=== PATIENT | male | born 1965 | race Caucasian/White ===

== ENCOUNTER 2024-07-31 13:06 | Emergency (ER) | payer OTHER, MEDICAID, SELFPAY ==
[2024-07-31 13:14] VITALS: BP 152/73; PULSE 72; RESP 18; TEMP 36.6; O2SAT 97; BMI 42.8
--- NOTE | 2024-07-31 13:26 | US_ITS ---
WS: [id number] RIGHT UPPER QUADRANT ULTRASOUND HISTORY: ruq pain COMPARISON: None available. Liver: Nondiagnostic evaluation of the liver. The entire liver is not visualized. Portal Vein: Not visualized. Gallbladder: Normally distended gallbladder with stones. Gallbladder wall is not thickened. CBD: Not identified. Pancreas: Obscured. Right kidney: 10.6 cm in length. Poorly visualized. No obstruction. Aorta and IVC: Not visualized. No ascites. US/US gall bladder [id number] IMPRESSION: 1. Technically very limited evaluation of the RIGHT upper quadrant. Nondiagnos tic exam for the most part. 2. Cholelithiasis. 3. Common bile duct is not visualized.
--- NOTE | 2024-07-31 13:27 | W.ED.ABDPA2 ---
HPI - Abdominal Pain General: Chief Complaint: Abdominal Pain Stated Complaint: Abdominal pain, Gallbladder issues Time Seen by Provider: 07/31/24 13:15 Source: patient Mode of arrival: ambulatory Limitations: no limitations History of Present Illness: 59-year-old male states that he has been having nausea vomiting also abdominal pain for the last week. He states that he is seen at [facility] on the was admitted for elevated liver enzymes and cholelithiasis states that when he is there he decided to check out AMA. States he still had some nausea states his pain is much improved he denies any abdominal pain here he has been afebrile. Denies any diarrhea. Associated Symptoms: Reports nausea and vomiting; Denies chills, diarrhea and fever(s) Related Data Home Medications Medication Instructions Recorded Confirmed Phen/Topir/B12 Sr 1 cap PO DAILY 07/31/24 07/31/24 amlodipine 10 mg tablet 10 mg PO DAILY 07/31/24 07/31/24 apixaban 5 mg tablet (Eliquis) 5 mg PO BID 07/31/24 07/31/24 aspirin 81 mg tablet,delayed 81 mg PO DAILY 07/31/24 07/31/24 release buspirone 30 mg tablet 20 mg PO BID 07/31/24 07/31/24 clonazepam 1 mg tablet 1 mg PO BEDTIME 07/31/24 07/31/24 gabapentin 800 mg tablet 800 mg PO TID 07/31/24 07/31/24 ibuprofen 800 mg tablet 800 mg PO BID 07/31/24 07/31/24 losartan 50 mg tablet 50 mg PO BID 07/31/24 07/31/24 metoprolol tartrate 25 mg tablet 25 mg PO BID 07/31/24 07/31/24 multivitamin 1 tab PO DAILY 07/31/24 07/31/24 sodium chloride-potassium chloride 1 tab PO 5XD 07/31/24 07/31/24 287 mg-180 mg-15 mg tablet (Thermotabs) venlafaxine 75 mg capsule,extended 75 mg PO DAILY 07/31/24 07/31/24 release 24 hr Previous Rx's Medication Instructions Recorded hydrocodone 5 mg-acetaminophen 325 1 tab PO Q6H PRN pain #14 tabs 07/31/24 mg tablet ondansetron 4 mg disintegrating 4 mg PO Q6H PRN nausea and 07/31/24 tablet vomiting #14 tabs Allergies Allergy/AdvReac Type Severity Reaction Status Date / Time nalbuphine [From Nubain] Allergy Unknown Verified 07/31/24 13:18 Review of Systems Const: Reports: fatigue; Denies: fever(s), chills, body aches or change in appetite ENMT: Denies: throat pain or dental pain Card: Denies: chest pain Resp: Denies: dyspnea GI: Reports: abdominal pain, nausea and vomiting; Denies: diarrhea Musc: Denies: neck pain or back pain Skin/Breast: Denies: rash Neuro: Denies: headache(s) Physical Exam Const: COMMON NORMALS: no acute distress, patient oriented x3 and healthy appearing HENMT: COMMON NORMALS: normocephalic and atraumatic HEAD & SCALP: normocephalic and atraumatic Neck/C-Spine: COMMON NORMALS: full ROM and supple Chest: COMMONS NORMALS: normal inspection of the chest Resp: COMMON NORMALS: normal respiratory effort, No retractions, No use of accessory muscles and clear to auscultation bilaterally AUSCULTATION: clear to auscultation bilaterally Cardio: COMMON NORMALS: regular rate, regular rhythm and No murmurs present (Cardio) RATE: regular rate RHYTHM: regular rhythm GI: COMMON NORMALS: Normal to inspection, nondistended, normoactive bowel sounds present, Soft to palpation, non-tender and no masses PALPATION: Yes Soft to palpation Extremity: COMMON NORMALS: normal to inspection and full ROM Neuro: COMMON NORMALS: patient oriented x3, moves all extremities and no focal motor deficits Psych: COMMON NORMALS: mental status grossly normal, Normal thought process present and cooperative THOUGHT PROCESS: Normal thought process present Skin: COMMON NORMALS: no rashes or lesions noted and no wounds GENERAL SKIN EXAM: no rashes or lesions noted Course Vital Signs: Vital signs: Vital Signs Temperature 97.9 F 07/31/24 13:14 Pulse Rate 69 07/31/24 14:54 Respiratory Rate 16 07/31/24 14:54 Blood Pressure 136/83 07/31/24 14:54 Pulse Oximetry 95 07/31/24 14:54 Oxygen Delivery Me thod Room Air 07/31/24 14:42 MDM - Abdominal Pain Medical Decision Making Patient presents here with abdominal pain is improved his abdominal exam here is benign he has no right upper quadrant tenderness I did review CT is done 2 days ago it [place] it showed multiple gallstones no signs of cholecystitis common bile duct was normal ultrasound here showed gallstones as well is liver enzymes bilirubin are unchanged they are only mildly elevated he has no signs of choledocholithiasis no signs of cholecystitis we will start him on pain meds nausea medicine will have him follow-up with surgery he is return if he has fever or increasing pain Medical Records I reviewed the patient's medical records. Lab Data I reviewed the patient's lab results. 07/31/24 13:50 07/31/24 13:50 Labs/Radiology: Radiology Impressions Gallbladder Ultrasound 07/31/24 13:26 IMPRESSION: 1. Technically very limited evaluation of the RIGHT upper quadrant. Nondiagnostic exam for the most part. 2. Cholelithiasis. 3. Common bile duct is not visualized. Laboratory Results WBC 5.34 10^3/uL (3.29-11.43) 07/31/24 13:50 RBC 5.05 10^6/uL (3.85-5.65) 07/31/24 13:50 Hgb 16.40 g/dL (11.27-16.99) 07/31/24 13:50 Hct 44.6 % (37-53) 07/31/24 13:50 MCV 88.3 fl (82-101) 07/31/24 13:50 MCH 32.5 pg (27-33) 07/31/24 13:50 MCHC 36.8 g/dL (30-55) 07/31/24 13:50 RDW 12.8 % (12.1-15.1) 07/31/24 13:50 Plt Count 201 10^3/cmm (157-399) 07/31/24 13:50 MPV 10.1 fL (7.4-10.4) 07/31/24 13:50 Neut % (Auto) 35.6 % 07/31/24 13:50 Lymph % (Auto) 49.1 % 07/31/24 13:50 [place] % (Auto) 11.4 % 07/31/24 13:50 Eos % (Auto) 3.0 % 07/31/24 13:50 Baso % (Auto) 0.7 % 07/31/24 13:50 Neut # (Auto) 1.90 10^3/uL (1.8-7.7) 07/31/24 13:50 Lymph # (Auto) 2.6 10^3/uL (0.8-4.8) 07/31/24 13:50 [place] # (Auto) 0.6 10^3/uL (0.2-0.9) 07/31/24 13:50 Eos # (Auto) 0.2 10^3/uL (0.0-0.8) 07/31/24 13:50 Baso # (Auto) 0.0 10^3/uL (0.0-0.1) 07/31/24 13:50 Nucleated RBC % (auto) 0 % 07/31/24 13:50 Nucleated RBCs # 0.0 /100WBC 07/31/24 13:50 Sodium 132 mmol/L (136-145) L 07/31/24 13:50 Potassium 4.3 mmol/L (3.5-5.1) 07/31/24 13:50 Chloride 98 mmol/L (98-107) 07/31/24 13:50 Carbon Dioxide 20 mmol/L (22-29) L 07/31/24 13:50 Anion Gap 18.3 (5-19) 07/31/24 13:50 BUN 7 mg/dL (6-20) 07/31/24 13:50 Creatinine 1.0 mg/dL (0.7-1.2) 07/31/24 13:50 GFR Calculation 77.0 mL/min (90-130) L 07/31/24 13:50 Glucose 119 mg/dL (65-115) H 07/31/24 13:50 Calculated Osmolality 273 mOsm/kg (285-295) L 07/31/24 13:50 Calcium 8.8 mg/dL (8.5-10.5) 07/31/24 13:50 Total Bilirubin 1.5 mg/dL (0.15-1.2) H 07/31/24 13:50 AST 78 U/L (0-40) H 07/31/24 13:50 ALT 102 U/L (0-41) H 07/31/24 13:50 Alkaline Phosphatase 129 U/L (40-130) 07/31/24 13:50 Total Protein 6.9 g/dL (6.6-8.7) 07/31/24 13:50 Albumin 4.1 g/dL (3.5-5.2) 07/31/24 13:50 Globulin 2.8 g/dL (1.3-4.6) 07/31/24 13:50 Lipase 34 U/L (13-60) 07/31/24 13:50 All radiology interpretation(s) finalized by discharge Discharge Plan Discharge Patient Disposition: Home Clinical Impression: Abdominal pain, Cholelithiases Condition: Stable Prescriptions: New hydrocodone-acetaminophen 5-325 mg tablet 1 tab PO Q6H PRN (Reason: pain) Qty: 14 0RF ondansetron 4 mg tablet,disintegrating 4 mg PO Q6H PRN (Reason: nausea and vomiting) Qty: 14 0RF No Action multivitamin Tablet 1 tab PO DAILY losartan 50 mg tablet 50 mg PO BID venlafaxine 75 mg capsule,extended release 24hr 75 mg PO DAILY ibuprofen 800 mg tablet 800 mg PO BID clonazepam 1 mg tablet 1 mg PO BEDTIME Aspir-81 81 mg Tablet,Delayed Release (Dr/Ec) 81 mg PO DAILY gabapentin 800 mg tablet 800 mg PO TID amlodipine 10 mg tablet 10 mg PO DAILY buspirone 30 mg tablet 20 mg PO BID metoprolol tartrate 25 mg tablet 25 mg PO BID Thermotabs 287-180-15 mg Tablet 1 tab PO 5XD Eliquis 5 mg tablet 5 mg PO BID Phen/Topir/B12 Sr 1 cap PO DAILY Discharge Orders: Discharge ED (Routine); Ordered 07/31/24 Ordered By: Ramila Arriola Referrals: Vega Zavala MD [Physician] - 4-7 days Artemio Lewis NP [Primary Care Provider] - Discharge Diet: Advance as tolerated Discharge Activity: Resume usual activity Patient Instructions: Biliary Colic (ED), Gallstones (ED), Abdominal Pain (ED) Coding Level of Care Code ED Inside Sales Assistant for Ellis Basilio
[2024-07-31] MEDS: ondansetron 2 mg/ML SDV 2 mL 4 MG IVP (13:50)
[2024-07-31 13:55] LABS: Basophils % 0.7 %; Eosinophils # 0.2 10^3/uL (0.0-0.8); Hematocrit 44.6 % (37-53); Lymphocytes # 2.6 10^3/uL (0.8-4.8); Lymphocytes % 49.1 %; Mean Corpuscular HGB Conc 36.8 g/dL (30-55); Mean Corpuscular Hemoglobin 32.5 pg (27-33); Mean Corpuscular Volume 88.3 fl (82-101); Mean Platelet Volume 10.1 fL (7.4-10.4); Monocytes # 0.6 10^3/uL (0.2-0.9); Monocytes % 11.4 %; Neutrophils % 35.6 %; Nucleated Red Blood Cells % 0 %; Platelet Count 201 10^3/cmm (157-399); Red Blood Count 5.05 10^6/uL (3.85-5.65); Red Cell Distribution Width 12.8 % (12.1-15.1); White Blood Count 5.34 10^3/uL (3.29-11.43)
[2024-07-31 13:57] VITALS: BP 145/91; PULSE 99; RESP 18; O2SAT 96
[2024-07-31 14:11] LABS: Alanine Aminotransferase 102 U/L (0-41); Albumin Level 4.1 g/dL (3.5-5.2); Alkaline Phosphatase 129 U/L (40-130); Anion Gap 18.3 (5-19); Aspartate Amino Transferase 78 U/L (0-40); Blood Urea Nitrogen 7 mg/dL (6-20); Calcium 8.8 mg/dL (8.5-10.5); Carbon Dioxide 20 mmol/L (22-29); Chloride 98 mmol/L (98-107); Globulin 2.8 g/dL (1.3-4.6); Glucose 119 mg/dL (65-115); Lipase 34 U/L (13-60); Osmolality Calculated 273 mOsm/kg (285-295); Potassium 4.3 mmol/L (3.5-5.1); Sodium 132 mmol/L (136-145); Total Bilirubin 1.5 mg/dL (0.15-1.2); Total Protein 6.9 g/dL (6.6-8.7)
[2024-07-31 14:42] VITALS: BP 114/75; PULSE 85; RESP 16; O2SAT 98
[2024-07-31 14:54] VITALS: BP 136/83; PULSE 69; RESP 16; O2SAT 95
--- NOTE | 2024-07-31 15:01 | DCPLANNER ---
messaged gen surg for er f/u
== END 2024-07-31 15:04 | disposition home or self-care (01) ==
PROVIDERS: Emergency Provider Emergency Medicine; PCP Nurse Practitioner
DX: K80.20 Calculus of gallbladder without cholecystitis without obstruction (principal); Z79.82 Long term (current) use of aspirin; Z79.01 Long term (current) use of anticoagulants
CPT/HCPCS: 76705; 80053; 83690; 85025; 96374; 99284; J2405

== ENCOUNTER 2024-08-07 11:35 | Outpatient (CLI) | payer OTHER, MEDICAID, SELFPAY ==
[2024-08-07 12:20] LABS: Alanine Aminotransferase 123 U/L (0-41); Albumin Level 4.4 g/dL (3.5-5.2); Alkaline Phosphatase 131 U/L (40-130); Aspartate Amino Transferase 81 U/L (0-40); Globulin 2.6 g/dL (1.3-4.6); Total Bilirubin 1.2 mg/dL (0.15-1.2)
== END 2024-08-07 11:36 | disposition home or self-care (01) ==
LOC: LAB 11:36
PROVIDERS: PCP Nurse Practitioner; Visit Provider Student in an Organized Health Care Education/Training Program
DX: K80.20 Calculus of gallbladder without cholecystitis without obstruction (principal); R10.9 Unspecified abdominal pain
CPT/HCPCS: 36415; 80076

== ENCOUNTER → 2025-04-04 11:32 | Outpatient (BNVA) | payer OTHER, MEDICAID, SELFPAY | PROVIDERS: PCP Nurse Practitioner; Referring Provider Nurse Practitioner; Visit Provider Internal Medicine | DX: R79.89 Other specified abnormal findings of blood chemistry (principal) | CPT/HCPCS: 36415; 83001; 83002; 84270; 84402; 84403 ==

== ENCOUNTER → 2025-04-11 13:23 | Outpatient (BNVA) | payer OTHER, MEDICAID, SELFPAY | PROVIDERS: PCP Nurse Practitioner; Referring Provider Nurse Practitioner; Visit Provider Internal Medicine | DX: E05.90 Thyrotoxicosis, unspecified without thyrotoxic crisis or storm (principal) | CPT/HCPCS: 36415; 84439; 84443; 84480 ==

== ENCOUNTER 2025-11-12 13:16 | Outpatient (CLI) | payer OTHER, MEDICAID, SELFPAY ==
[2025-11-12 14:41] LABS: Thyroid Stimulating Hormone 1.44 uIU/mL (0.27-4.20)
== END 2025-11-12 13:17 | disposition home or self-care (01) ==
LOC: LAB 13:18
PROVIDERS: Family Medicine; Internal Medicine Endocrinology, Diabetes & Metabolism; PCP Nurse Practitioner; Visit Provider Internal Medicine
DX: E25.0 Congenital adrenogenital disorders associated with enzyme deficiency (principal); E05.90 Thyrotoxicosis, unspecified without thyrotoxic crisis or storm; E03.9 Hypothyroidism, unspecified
CPT/HCPCS: 82157; 83002; 83498; 84270; 84402; 84403; 84436; 84443